=== PATIENT | female | born 1960 | race Caucasian/White ===

== ENCOUNTER 2022-02-07 15:27 | Inpatient (IN) ==
[2022-02-07 20:41] LABS: Basophils # 0.1 10*3/uL (0.0-0.2); Basophils % 0.6 % (0.0-0.8); Eosinophils # 0.3 10*3/uL (0.0-0.87); Eosinophils % 3.4 % (0.00-10.9); Hematocrit 48.5 VOL% (35.7-47.0); Hemoglobin 15.5 GM/DL (12.0-16.0); Immature Granulocytes % 0.2 %; Immature Granulocytes Absolute 0.02 #; Lymphocytes # 3.3 10*3/uL (1.4-4.0); Lymphocytes % 36.6 % (21.3-54.2); Mean Corpuscular Volume 86.9 FL (87-102); Mean Platelet Volume 11.1 FL (9.6-12.0); Monocytes # 0.7 10*3/uL (0.11-0.8); Monocytes % 7.3 % (1.7-12.7); Neutrophils % 51.9 % (38.7-73.9); Platelet Count 257 T/CUMM (130-400); Red Blood Count 5.58 MC/CUMM (3.8-5.5); Red Cell Distribution Width 13.2 % (9.3-17.3); White Blood Count 8.9 T/CUMM (4-12)
[2022-02-07 21:05] LABS: Albumin 4.1 G/DL (3.4-5.0); Bilirubin,Total 0.5 MG/DL (0.20-1.00); Calcium 9.9 MG/DL (8.5-10.1); Osmolality,Calculated 280.3 MOS/KG (273-304); Potassium 3.8 MMOL/L (3.5-5.1); Total Protein 7.8 G/DL (6.4-8.2)
[2022-02-07 22:11] LABS: Bilirubin,Urine Negative (Negative); Blood, Urine Negative (Negative); Glucose,Urine (UA) Negative (Negative); Ketones,Urine Negative (Negative); Nitrite,Urine Negative (Negative); Protein,Urine Negative (Negative); RBC,Urine <1 /HPF (0-4); Urine Appearance Clear (Clear); Urine Color Yellow (Yellow); Urine Urobilinogen 0.2 eU/dL (<2.0)
[2022-02-08] MEDS ORDERED: diphenhydrAMINE CAP 25 MG CAPSULE PO PRN (00:02)
[2022-02-08] MEDS ORDERED: NICOTINE 21 MG/24 HR PATCH TRANSDERM PRN (00:02)
[2022-02-08] MEDS ORDERED: hydrALAZINE 20 MG/1 ML VIAL IV PRN (00:02)
[2022-02-08] MEDS ORDERED: guaiFENesin/DM ER 600-30 MG TABLET PO PRN (00:02)
[2022-02-08] MEDS ORDERED: DEXTROSE 10% 250 ML BAG IV PRN (00:02)
[2022-02-08] MEDS ORDERED: ZALEPLON 5 MG CAPSULE PO PRN (00:02)
[2022-02-08] MEDS ORDERED: ONDANSETRON 4 MG/2 ML VIAL IV PRN (00:02)
[2022-02-08] MEDS ORDERED: GLUCAGON 1 MG VIAL IM PRN (00:02)
[2022-02-08] MEDS ORDERED: ACETAMINOPHEN 325 MG TABLET PO PRN (00:02)
[2022-02-08 04:24] LABS: Basophils # 0.1 10*3/uL (0.0-0.2); Basophils % 0.8 % (0.0-0.8); Eosinophils # 0.3 10*3/uL (0.0-0.87); Eosinophils % 4.3 % (0.00-10.9); Hematocrit 48.2 VOL% (35.7-47.0); Hemoglobin 15.3 GM/DL (12.0-16.0); Immature Granulocytes % 0.4 %; Immature Granulocytes Absolute 0.03 #; Lymphocytes # 3.1 10*3/uL (1.4-4.0); Lymphocytes % 39.5 % (21.3-54.2); Mean Corpuscular HGB Conc 31.7 GM/DL (32-36); Mean Corpuscular Volume 88.4 FL (87-102); Mean Platelet Volume 11.1 FL (9.6-12.0); Monocytes # 0.6 10*3/uL (0.11-0.8); Monocytes % 8.3 % (1.7-12.7); Neutrophils % 46.7 % (38.7-73.9); Platelet Count 234 T/CUMM (130-400); Red Blood Count 5.45 MC/CUMM (3.8-5.5); Red Cell Distribution Width 13.3 % (9.3-17.3); White Blood Count 7.7 T/CUMM (4-12)
[2022-02-08 04:43] LABS: Calcium 9.4 MG/DL (8.5-10.1); Potassium 3.9 MMOL/L (3.5-5.1)
[2022-02-08] MEDS: LEVOTHYROXINE 75 MCG TABLET PO SCH (06:29)
[2022-02-08 06:32] LABS: Free T4 (Free Thyroxine) 0.85 NG/DL (0.76-1.46); Thyroid Stimulating Hormone 4.99 uIU/ml (0.358-3.74)
[2022-02-08] MEDS: ASPIRIN EC 81 MG TABLET PO SCH (10:01)
[2022-02-08] MEDS: PANTOPRAZOLE 40 MG TABLET PO SCH (10:01)
[2022-02-08] MEDS: ENOXAPARIN 40 MG/0.4 ML SYRINGE SUBCUT SCH (10:01)
[2022-02-08] MEDS: ROSUVASTATIN 20 MG TABLET PO SCH (10:01)
[2022-02-08] MEDS: FLECAINIDE 100 MG TABLET PO SCH ×2 (15:52→20:50)
[2022-02-08] MEDS: SERTRALINE 100 MG TABLET PO SCH (15:52)
[2022-02-08] MEDS: ASCORBIC ACID 500 MG TABLET PO SCH ×2 (16:55→20:50)
[2022-02-08] MEDS: METOPROLOL SUCCINATE XL 25 MG TABLET PO SCH (20:51)
[2022-02-09 05:06] LABS: Basophils # 0.1 10*3/uL (0.0-0.2); Basophils % 0.7 % (0.0-0.8); Eosinophils # 0.3 10*3/uL (0.0-0.87); Eosinophils % 4.5 % (0.00-10.9); Hemoglobin 15.6 GM/DL (12.0-16.0); Immature Granulocytes % 0.1 %; Immature Granulocytes Absolute 0.01 #; Lymphocytes # 2.9 10*3/uL (1.4-4.0); Lymphocytes % 37.8 % (21.3-54.2); Mean Corpuscular HGB Conc 31.8 GM/DL (32-36); Mean Corpuscular Volume 87.8 FL (87-102); Mean Platelet Volume 11.5 FL (9.6-12.0); Monocytes # 0.6 10*3/uL (0.11-0.8); Monocytes % 8.3 % (1.7-12.7); Neutrophils % 48.6 % (38.7-73.9); Platelet Count 218 T/CUMM (130-400); Red Blood Count 5.58 MC/CUMM (3.8-5.5); Red Cell Distribution Width 13.4 % (9.3-17.3); White Blood Count 7.6 T/CUMM (4-12)
[2022-02-09 05:40] LABS: Calcium 9.8 MG/DL (8.5-10.1); Osmolality,Calculated 284.1 MOS/KG (273-304); Potassium 5.4 MMOL/L (3.5-5.1)
[2022-02-09] MEDS: LEVOTHYROXINE 75 MCG TABLET PO SCH (05:57)
[2022-02-09] MEDS: PANTOPRAZOLE 40 MG TABLET PO SCH (10:10)
[2022-02-09] MEDS: ROSUVASTATIN 20 MG TABLET PO SCH (10:10)
[2022-02-09] MEDS: ASPIRIN EC 81 MG TABLET PO SCH (10:11)
[2022-02-09] MEDS: SERTRALINE 100 MG TABLET PO SCH (10:11)
[2022-02-09] MEDS: ENOXAPARIN 40 MG/0.4 ML SYRINGE SUBCUT SCH (10:15)
[2022-02-09] MEDS: ASCORBIC ACID 500 MG TABLET PO SCH (10:15)
[2022-02-09] MEDS: FLECAINIDE 100 MG TABLET PO SCH (10:15)
[2022-02-09] MEDS: METOPROLOL SUCCINATE XL 25 MG TABLET PO SCH (10:16)
[2022-02-09] MEDS ORDERED: METOPROLOL SUCCINATE XL 25 MG TABLET PO SCH (10:30)
[2022-02-09] MEDS ORDERED: APIXABAN 5 MG TABLET PO SCH (11:00)
[2022-02-09 15:27] VITALS: BP 118/75
== END 2022-02-09 17:05 | disposition home or self-care (01) | DRG 310 ==
LOC: N.ED 15:27 → SUATTDRO 02-08 00:02 → N.EDINP 02-08 00:02 → N.TELES 02-08 15:25
PROVIDERS: ADMIT Hospitalist; ATTEND Internal Medicine